=== PATIENT | female | born 1950 | race Caucasian/White ===

== ENCOUNTER 2017-02-03 01:29 | Observation (INO) ==
[2017-02-03] MEDS ORDERED: *HR* Metoprolol 5 MG/5 ML VIAL IVP ONE ×3 (01:38→02:03)
[2017-02-03 01:52] LABS: Bilirubin,Urine Negative (Negative); Blood,Urine Trace (Negative); Clarity,Urine Clear (Clear); Color,Urine Yellow (Yellow); Glucose,Urine (UA) Normal (Normal); Ketones,Urine Negative (Negative); Leukocyte Esterase,Urine Negative (Negative); Nitrite,Urine Negative (Negative); PH,Urine 6.5 pH Units (5.0-8.0); Protein,Urine 30 mg/dL (Neg-Trace); Specific Gravity,Urine 1.012 (1.010-1.025); Urobilinogen,Urine Normal (Normal)
[2017-02-03 01:54] LABS: Bacteria,Urine None Seen per hpf (None-Few); Basophils # 0.1 K/mcL (0.0-0.2); Basophils % 1.2 %; Eosinophils # 0.3 K/mcL (0.0-0.6); Eosinophils % 3.3 %; Hematocrit 45.7 % (35.3-44.9); Hyaline Casts,Urine None Seen per lpf (None-Few); Immature Granulocytes % 0.5 % (0-4); Lymphocytes # 3.8 K/mcL (0.6-4.6); Mean Corpuscular Hemoglobin 31.1 pg (28.0-33.3); Mean Corpuscular Volume 88.9 fL (83.0-100.0); Mean Platelet Volume 8.9 fL (9.4-12.4); Monocytes % 10.2 %; Neutrophils # 4.7 K/mcL (1.6-8.9); Platelet Count 343 K/mcL (140-400); RBC,Urine 0-3 per hpf (0-3); Red Blood Count 5.14 M/mcL (3.82-4.97); Red Cell Distribution Width 12.1 % (11.5-14.5); Segmented Neutrophils % 46.8 %; Squamous Epithelial Cell,Urine Moderate per lpf (None-Few)
[2017-02-03 01:58] LABS: Amphetamine Screen,Urine Negative ng/mL (Cutoff=1000); Barbiturate Screen,Urine Negative ng/mL (Cutoff=200); Benzodiazepines Screen,Urine Negative ng/mL (Cutoff=200); Cannabinoid Screen,Urine Negative ng/mL (Cutoff = 50); Cocaine Screen,Urine Negative ng/mL (Cutoff= 300); Opiate Screen,Urine Negative ng/mL (Cutoff=300); Phencyclidine Screen,Urine Negative ng/mL (Cutoff=25)
[2017-02-03 02:00] LABS: INR 2.6; Prothrombin Time 28.3 Seconds (9.4-12.1)
[2017-02-03 02:03] LABS: Activated Partial Thrombo Time 39.5 Seconds (26.0-36.0)
--- NOTE | 2017-02-03 02:03 | Emergency Department Note ---
Disposition Clinical Impression: ST segment changes on electrocardiogram, Tachycardia, Lower GI bleeding Hypertension Qualifiers: Hypertension type: unspecified Qualified Code(s): I10 - Essential (primary) hypertension Disposition: Admitted As Inpatient Condition: Fair General Adult HPI - General Chief complaint: ED Chest Pain Stated complaint: high bp and high pulse Time Seen by Provider: 02/03/17 01:35 Source: patient Mode of arrival: private vehicle Limitations: no limitations Nursing Notes Reviewed: Yes Vital Signs Reviewed: Yes - History of Present Illness Pt Subjective Complaint: heart is racing and blood pressure is up Onset (ago): hour(s) (2) Location: other (no pain) Radiation: non-radiation Pain Scale: 0 Quality: other (no pain) Consistency: constant Improves with: nothing Worsens with: nothing Associated symptoms: Reports: other (Vision was a little blurry when left the house to come here). Denies: confusion, chest pain, cough, diaphoresis, fever/ chills, headaches, loss of appetite, malaise, nausea/vomiting, rash, seizure, shortness of breath, syncope, weakness Treatments Prior to Arrival: other (Took a Clonidine) - Related Data Home Medications Medication Instructions Recorded Confirmed Atenolol 11/26/15 Coumadin 11/26/15 Suzanne [place] 12,000 Units Capsule 11/26/15 Estrace 11/26/15 Flexeril 11/26/15 Melatonin 11/26/15 Trospium Chloride 11/26/15 Previous Rx's Medication Instructions Recorded Acyclovir [Zovirax] 800 mg PO 5XD #35 tablet 11/26/15 Hydrocodone/Acetaminophen [[place] 1 each PO Q4H PRN #10 tablet 11/26/15 5-325 Tablet] predniSONE [Prednisone] 40 mg PO DAILY #10 tablet 11/26/15 Allergies Allergy/AdvReac Type Severity Reaction Status Date / Time No Known Allergies Allergy Verified 02/03/17 01:35 All systems ED: reviewed and negative except as stated. Review of Systems: As Per HPI Constitutional: Denies: fever, chills, weakness, weight change, night sweats Eyes: Reports: as per HPI, vision change. Denies: eye pain, eye discharge ENT ED: Denies: ear pain, throat pain, congestion, dysphagia Cardiovascular: Reports: palpitations. Denies: chest pain, dyspnea on exertion , orthopnea, edema, syncope, paroxysmal nocturnal dyspnea Respiratory: Denies: cough, dyspnea, wheezes Gastrointestinal: Reports: hematochezia (several episodes, > 1 daily for the past 7 days). Denies: abdominal pain, nausea, vomiting, hematemesis Genitourinary: Denies: urgency, dysuria, frequency, hematuria Musculoskeletal: Denies: back pain, neck pain, joint swelling, arthralgia, myalgia Integumentary: Denies: rash, abrasion, lesions Neurological: Denies: headache, weakness, numbness, paresthesias, confusion, abnormal gait, vertigo Hematological/Lymphatic: Reports: easy bleeding (Coumadin), easy bruising. Denies: lymphadenopathy Past Medical History - Past Medical History Attestation: Yes The following information was validated with the patient. 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 Absent: scleral icterus, conjunctival injection, periorbital swelling - ENT ENT exam: mucous membranes dry - Neck Neck exam: Present: normal inspection, full ROM, trachea midline. Absent: tenderness, meningismus - Chest Chest inspection: Present: normal inspection - Respiratory Respiratory exam: Present: normal lung sounds bilaterally. Absent: respiratory distress, wheezes, stridor, accessory muscle use - Cardiovascular Cardiovascular exam: Present: normal rhythm, tachycardia, normal heart sounds. Absent: systolic murmur, diastolic murmur - Abdominal Exam Abdominal exam: Present: soft, Non-Tender, normal bowel sounds. Absent: distention, guarding, rebound, rigidity, organomegaly - Extremities Exam Extremities exam: Present: normal inspection, normal capillary refill. Absent: pedal edema, calf tenderness - Back Exam Back exam: Present: normal inspection - Neurological Exam Neurological exam: Present: alert, oriented X3, CN II-XII intact, normal gait - Psychiatric Psychiatric exam: Present: normal affect, normal mood - Skin Skin exam: Present: warm, dry, intact, normal color Course Course Narrative: 66-year-old female with history of protein S deficiency, pulmonary emboli and hypertension, presents for evaluation of "Heart racing" and high BP. This began while resting. She took a Clonidine which did not help, so she drove herself here. She describes a similar episode of this many years ago after switching BP meds. She was recently switched from Atenolol to Metoprolol and feels that this may be the cause of her symptoms today. She denies pain, dizziness, syncope or dyspnea. She has had no recent surgeries, leg pain or swelling, and has not missed any doses of Coumadin. She also describes 7 days of rectal bleeding - with one or more episodes daily. Labs, EKG and CXR ordered. Lopressor ordered, but patient's rate and BP began to slowly decline before it was given. EKG shows sinus tachycardia - rate of 119 - with ST depression in V4, V5. The degree of depression is worse when compared to previous EKG. Aspirin held because of recent lower GI Bleeding. Troponin normal. CBC is essentially normal, renal function normal, K is a little low, glucose a little high INR is 2.6. PO K ordered. U/A unremarkable. CXR normal. Vitals continue to improve - most likely in part due to the Clonidine she took at home. Given her recent GI bleed, on Coumadin, and ST changes, will admit. Farhanse discussed with Dr. Lott. He has had face to face time with the patient and agrees with the assessment and plan. - Reevaluation(s) Reevaluation #1: PAtient is feeling a little better. Vitals are improved. Time: 02:40 Vital Signs Temperature 97.8 F 02/03/17 01:30 Pulse Rate 131 02/03/17 01:30 Respiratory Rate 18 02/03/17 01:30 Blood Pressure 194/118 02/03/17 01:30 O2 Sat by Pulse Oximetry 97 02/03/17 01:30 Temperature 97.8 F 02/03/17 01:30 Pulse Rate 81 02/03/17 04:40 Respiratory Rate 18 02/03/17 04:40 Blood Pressure 159/98 02/03/17 04:40 O2 Sat by Pulse Oximetry 97 02/03/17 04:40 Oxygen Delivery Oxygen Delivery Room Air Medical Decision Making - Medical Records Medical records reviewed: Yes I reviewed the patient's medical records. - Lab Data Lab results reviewed: Yes I reviewed the patient's lab results. Lab results narrative: Laboratory Last Values WBC 9.9 K/mcL (4.3-11.1) 02/03/17 01:39 RBC 5.14 M/mcL (3.82-4.97) H 02/03/17 01:39 Hgb 16.0 g/dL (11.5-15.4) H 02/03/17 01:39 Hct 45.7 % (35.3-44.9) H 02/03/17 01:39 MCV 88.9 fL (83.0-100.0) 02/03/17 01:39 MCH 31.1 pg (28.0-33.3) 02/03/17 01:39 MCHC 35.0 g/dL (31.6-35.5) 02/03/17 01:39 RDW 12.1 % (11.5-14.5) 02/03/17 01:39 Plt Count 343 K/mcL (140-400) 02/03/17 01:39 MPV 8.9 fL (9.4-12.4) L 02/03/17 01:39 Immature Gran % 0.5 % (0-4) 02/03/17 01:39 Seg Neutrophils % 46.8 % 02/03/17 01:39 Lymphocytes % 38.0 % 02/03/17 01:39 Monocytes % 10.2 % 02/03/17 01:39 Eosinophils % 3.3 % 02/03/17 01:39 Basophils % 1.2 % 02/03/17 01:39 Neutrophils # 4.7 K/mcL (1.6-8.9) 02/03/17 01:39 Lymphocytes # 3.8 K/mcL (0.6-4.6) 02/03/17 01:39 Monocytes # 1.0 K/mcL (0.0-1.3) 02/03/17 01:39 Eosinophils # 0.3 K/mcL (0.0-0.6) 02/03/17 01:39 Basophils # 0.1 K/mcL (0.0-0.2) 02/03/17 01:39 PT 28.3 Seconds (9.4-12.1) H 02/03/17 01:39 INR 2.6 02/03/17 01:39 APTT 39.5 Seconds (26.0-36.0) H 02/03/17 01:39 Sodium 141 mEq/L (136-145) 02/03/17 01:39 Potassium 3.2 mEq/L (3.5-4.5) L 02/03/17 01:39 Chloride 106 mEq/L (98-109) 02/03/17 01:39 Carbon Dioxide 21 mEq/L (19-29) 02/03/17 01:39 BUN 7 mg/dL (7-20) 02/03/17 01:39 Creatinine 0.82 mg/dL (0.57-1.11) 02/03/17 01:39 Est GFR ( Amer) > 60 (> 60) 02/03/17 01:39 Est GFR (Non-Af Amer) > 60 (> 60) 02/03/17 01:39 BUN/Creatinine Ratio 9 (6-26) 02/03/17 01:39 Glucose 125 mg/dL (70-99) H 02/03/17 01:39 Calculated Osmolality 291 (280-300) 02/03/17 01:39 Calcium 9.2 mg/dL (8.6-10.8) 02/03/17 01:39 Magnesium 1.9 mg/dL (1.6-2.6) 02/03/17 01:39 Total Bilirubin 0.7 mg/dL (0.2-1.2) 02/03/17 01:39 Direct Bilirubin 0.2 mg/dL (0.0-0.5) 02/03/17 01:39 Indirect Bilirubin 0.5 mg/dL (0.0-1.2) 02/03/17 01:39 AST 16 Units/L (5-34) 02/03/17 01:39 ALT 20 Units/L (0-55) 02/03/17 01:39 Alkaline Phosphatase 119 Units/L (38-126) 02/03/17 01:39 Troponin I 0.01 ng/mL (0-0.03) 02/03/17 01:39 Serum Total Protein 7.5 g/dL (6.0-8.3) 02/03/17 01:39 Albumin 4.0 g/dL (3.5-5.0) 02/03/17 01:39 Globulin 3.5 g/dL (2.4-3.5) 02/03/17 01:39 Albumin/Globulin Ratio 1.1 (1.1-2.2) 02/03/17 01:39 Urine Color Yellow (Yellow) 02/03/17 01:39 Urine Clarity Clear (Clear) 02/03/17 01:39 Urine pH 6.5 pH Units (5.0-8.0) 02/03/17 01:39 Ur Specific [place] 1.012 (1.010-1.025) 02/03/17 01:39 Urine Protein 30 mg/dL (Neg-Trace) H 02/03/17 01:39 Urine Glucose (UA) Normal mg/dL (Normal) 02/03/17 01:39 Urine Ketones Negative mg/dL (Negative) 02/03/17 01:39 Urine Blood Trace (Negative) H 02/03/17 01:39 Urine Nitrite Negative (Negative) 02/03/17 01:39 Urine Bilirubin Negative (Negative) 02/03/17 01:39 Urine Urobilinogen Normal mg/dL (Normal) 02/03/17 01:39 Ur Leukocyte Esterase Negative (Negative) 02/03/17 01:39 Urine Microscopic RBC 0-3 per hpf (0-3) 02/03/17 01:39 Urine Microscopic WBC 3-5 per hpf (0-3) H 02/03/17 01:39 Ur Squamous Epith Cells Moderate per lpf (None-Few) H 02/03/17 01:39 Urine Bacteria None Seen per hpf (None-Few) 02/03/17 01:39 Hyaline Casts None Seen per lpf (None-Few) 02/03/17 01:39 Ur Culture Indicated? NO (NO) 02/03/17 01:39 Urine Opiates Screen Negative ng/mL (Nqhmnr=816) 02/03/17 01:39 Ur Barbiturates Screen Negative ng/mL (Kkljms=690) 02/03/17 01:39 Ur Phencyclidine Scrn Negative ng/mL (Cutoff=25) 02/03/17 01:39 Ur Amphetamines Screen Negative ng/mL (Uotaig=4360) 02/03/17 01:39 U Benzodiazepines Scrn Negative ng/mL (Wyvlpd=662) 02/03/17 01:39 Urine Cocaine Screen Negative ng/mL (Cutoff= 300) 02/03/17 01:39 U Marijuana (THC) Screen Negative ng/mL (Cutoff = 50) 02/03/17 01:39 Result diagrams: 02/03/17 01:39 02/03/17 01:39 Lab Results 02/03/17 02/03/17 02/03/17 Range/Units 01:39 01:39 01:39 WBC (4.3-11.1) K/mcL RBC (3.82-4.97) M/mcL Hgb (11.5-15.4) g/dL Hct (35.3-44.9) % MCV (83.0-100.0) fL MCH (28.0-33.3) pg MCHC (31.6-35.5) g/dL RDW (11.5-14.5) % Plt Count (140-400) K/mcL MPV (9.4-12.4) fL Immature Gran % (0-4) % Seg Neutrophils % % Lymphocytes % % Monocytes % % Eosinophils % % Basophils % % Neutrophils # (1.6-8.9) K/mcL Lymphocytes # (0.6-4.6) K/mcL Monocytes # (0.0-1.3) K/mcL Eosinophils # (0.0-0.6) K/mcL Basophils # (0.0-0.2) K/mcL PT 28.3 H (9.4-12.1) Seconds INR 2.6 APTT 39.5 H (26.0-36.0) Seconds Sodium (136-145) mEq/L Potassium (3.5-4.5) mEq/L Chloride (98-109) mEq/L Carbon Dioxide (19-29) mEq/L BUN (7-20) mg/dL Creatinine (0.57-1.11) mg/dL Est GFR ( Amer) (> 60) Est GFR (Non-Af Amer) (> 60) BUN/Creatinine Ratio (6-26) Glucose (70-99) mg/dL Calculated Osmolality (280-300) Calcium (8.6-10.8) mg/dL Magnesium (1.6-2.6) mg/dL Total Bilirubin (0.2-1.2) mg/dL Direct Bilirubin (0.0-0.5) mg/dL Indirect Bilirubin (0.0-1.2) mg/dL AST (5-34) Units/L ALT (0-55) Units/L Alkaline Phosphatase (38-126) Units/L Troponin I (0-0.03) ng/mL Serum Total Protein (6.0-8.3) g/dL Albumin (3.5-5.0) g/dL Globulin (2.4-3.5) g/dL Albumin/Globulin Ratio (1.1-2.2) TSH (0.350-4.840) mcIU/mL Free T4 (0.70-1.48) ng/dl Urine Color Yellow (Yellow) Urine Clarity Clear (Clear) Urine pH 6.5 (5.0-8.0) pH Units Ur Specific [place] 1.012 (1.010-1.025) Urine Protein 30 H (Neg-Trace) mg/dL Urine Glucose (UA) Normal (Normal) mg/dL Urine Ketones Negative (Negative) mg/dL Urine Blood Trace H (Negative) Urine Nitrite Negative (Negative) Urine Bilirubin Negative (Negative) Urine Urobilinogen Normal (Normal) mg/dL Ur Leukocyte Esterase Negative (Negative) Urine Microscopic RBC 0-3 (0-3) per hpf Urine Microscopic WBC 3-5 H (0-3) per hpf Ur Squamous Epith Cells Moderate H (None-Few) per lpf Urine Bacteria None Seen (None-Few) per hpf Hyaline Casts None Seen (None-Few) per lpf Ur Culture Indicated? NO (NO) Urine Opiates Screen Negative (Owpgox=988) ng/mL Ur Barbiturates Screen Negative (Xzjzml=036) ng/mL Ur Phencyclidine Scrn Negative (Cutoff=25) ng/mL Ur Amphetamines Screen Negative (Chiofl=7953) ng/mL U Benzodiazepines Scrn Negative (Kuciyg=964) ng/mL Urine Cocaine Screen Negative (Cutoff= 300) ng/mL U Marijuana (THC) Screen Negative (Cutoff = 50) ng/mL 02/03/17 02/03/17 02/03/17 Range/Units 01:39 01:39 01:39 WBC 9.9 (4.3-11.1) K/mcL RBC 5.14 H (3.82-4.97) M/mcL Hgb 16.0 H (11.5-15.4) g/dL Hct 45.7 H (35.3-44.9) % MCV 88.9 (83.0-100.0) fL MCH 31.1 (28.0-33.3) pg MCHC 35.0 (31.6-35.5) g/dL RDW 12.1 (11.5-14.5) % Plt Count 343 (140-400) K/mcL MPV 8.9 L (9.4-12.4) fL Immature Gran % 0.5 (0-4) % Seg Neutrophils % 46.8 % Lymphocytes % 38.0 % Monocytes % 10.2 % Eosinophils % 3.3 % Basophils % 1.2 % Neutrophils # 4.7 (1.6-8.9) K/mcL Lymphocytes # 3.8 (0.6-4.6) K/mcL Monocytes # 1.0 (0.0-1.3) K/mcL Eosinophils # 0.3 (0.0-0.6) K/mcL Basophils # 0.1 (0.0-0.2) K/mcL PT (9.4-12.1) Seconds INR APTT (26.0-36.0) Seconds Sodium 141 (136-145) mEq/L Potassium 3.2 L (3.5-4.5) mEq/L Chloride 106 (98-109) mEq/L Carbon Dioxide 21 (19-29) mEq/L BUN 7 (7-20) mg/dL Creatinine 0.82 (0.57-1.11) mg/dL Est GFR ( Amer) > 60 (> 60) Est GFR (Non-Af Amer) > 60 (> 60) BUN/Creatinine Ratio 9 (6-26) Glucose 125 H (70-99) mg/dL Calculated Osmolality 291 (280-300) Calcium 9.2 (8.6-10.8) mg/dL Magnesium 1.9 (1.6-2.6) mg/dL Total Bilirubin 0.7 (0.2-1.2) mg/dL Direct Bilirubin 0.2 (0.0-0.5) mg/dL Indirect Bilirubin 0.5 (0.0-1.2) mg/dL AST 16 (5-34) Units/L ALT 20 (0-55) Units/L Alkaline Phosphatase 119 (38-126) Units/L Troponin I 0.01 (0-0.03) ng/mL Serum Total Protein 7.5 (6.0-8.3) g/dL Albumin 4.0 (3.5-5.0) g/dL Globulin 3.5 (2.4-3.5) g/dL Albumin/Globulin Ratio 1.1 (1.1-2.2) TSH 4.047 (0.350-4.840) mcIU/mL Free T4 1.06 (0.70-1.48) ng/dl Urine Color (Yellow) Urine Clarity (Clear) Urine pH (5.0-8.0) pH Units Ur Specific [place] (1.010-1.025) Urine Protein (Neg-Trace) mg/dL Urine Glucose (UA) (Normal) mg/dL Urine Ketones (Negative) mg/dL Urine Blood (Negative) Urine Nitrite (Negative) Urine Bilirubin (Negative) Urine Urobilinogen (Normal) mg/dL Ur Leukocyte Esterase (Negative) Urine Microscopic RBC (0-3) per hpf Urine Microscopic WBC (0-3) per hpf Ur Squamous Epith Cells (None-Few) per lpf Urine Bacteria (None-Few) per hpf Hyaline Casts (None-Few) per lpf Ur Culture Indicated? (NO) Urine Opiates Screen (Ghdjex=634) ng/mL Ur Barbiturates Screen (Pzdbgm=284) ng/mL Ur Phencyclidine Scrn (Cutoff=25) ng/mL Ur Amphetamines Screen (Ykmsfs=3832) ng/mL U Benzodiazepines Scrn (Xpwije=227) ng/mL Urine Cocaine Screen (Cutoff= 300) ng/mL U Marijuana (THC) Screen (Cutoff = 50) ng/mL - Radiology Data Radiology results reviewed: Yes I reviewed the patient's radiology results. Chest X-Ray 02/03/17 01:38 IMPRESSION: No acute cardiopulmonary abnormality. D/ / Nikhil Riley MD / Nikhil Riley MD Interpreting Provider: Nikhil Riley MD - EKG Data EKG #1 EKG attestation: Yes I reviewed and interpreted this EKG. EKG shows normal: sinus rhythm Rate: tachycardia Rhythm: NSR [place]/QRS: normal P waves: LAE ST segment depression in: v4, v5 When compared to previous EKG there are: changes noted - Core Measures AMI Core Measures Followed: No (ASA held due to GI Bleed) Measure Exclusions: contraindicated (ASA - Rectal bleed) Attestation Statement - Attestation Attestation: I have personally performed a face to face evaluation on this patient. I have reviewed and agree with the care plan. History and Exam by me shows:
[2017-02-03 02:08] LABS: Alanine Aminotransferase 20 Units/L (0-55); Albumin/Globulin Ratio 1.1 (1.1-2.2); Alkaline Phosphatase 119 Units/L (38-126); Aspartate Amino Transferase 16 Units/L (5-34); BUN/Creatinine Ratio 9 (6-26); Bilirubin,Direct 0.2 mg/dL (0.0-0.5); Bilirubin,Indirect 0.5 mg/dL (0.0-1.2); Bilirubin,Total 0.7 mg/dL (0.2-1.2); Blood Urea Nitrogen 7 mg/dL (7-20); Calcium 9.2 mg/dL (8.6-10.8); Carbon Dioxide 21 mEq/L (19-29); Chloride 106 mEq/L (98-109); Globulin 3.5 g/dL (2.4-3.5); Glucose 125 mg/dL (70-99); Osmolality,Calculated 291 (280-300); Potassium 3.2 mEq/L (3.5-4.5); Sodium 141 mEq/L (136-145); Total Protein 7.5 g/dL (6.0-8.3); eGFR For African Americans > 60 (> 60); eGFR For Non-African Americans > 60 (> 60)
[2017-02-03 02:50] LABS: Magnesium 1.9 mg/dL (1.6-2.6)
[2017-02-03 03:17] LABS: Thyroid Stimulating Hormone 4.047 mcIU/mL (0.350-4.840)
[2017-02-03] MEDS ORDERED: Ondansetron 4 MG/2 ML VIAL IVP PRN (04:33)
[2017-02-03] MEDS ORDERED: Acetaminophen 325 MG TABLET PO PRN (04:33)
[2017-02-03] MEDS ORDERED: Naloxone 0.4 MG/ML INJ IVP PRN (04:33)
--- NOTE | 2017-02-03 04:42 | Internal Med History&Physical ---
Date of Encounter: 02/03/17 Time of Encounter: 04:40 Assessment and Plan (1) Tachycardia Current visit: Yes Status: Acute Patient has history of PE and coagulopathy with protein C and S deficiency. She is on Coumadin with INR 2.6. She developed tachycardia and shortness of breath and palpitation and seems quite nervous about the possibility of blood clot. A CT angiogram will be ordered to see if she failed anticoagulation therapy. Nasal oxygen was started. Check TSH (2) ST segment changes on electrocardiogram Current visit: Yes Status: Acute ER physician documented that EKG showed ST depression. Cardiac enzymes ordered. Stress test scheduled in the morning. Continue current medication (3) Lower GI bleeding Current visit: Yes Status: Acute Patient is complaining of rectal bleed. 7 days continuously. Her hemoglobin is 16 on this admission. Started on IV fluid check H&H every 6. Hemoccult stool test ordered. (4) Coagulopathy Current visit: Yes Status: Acute Protein C and S deficiency per ER. Continue Coumadin as there is no obvious active bleed currently and patient is high risk for clot formation. Pepcid for prophylaxis at (5) Hypertension Current visit: Yes Status: Acute Continue home medication and check blood pressure daily Qualifiers: Hypertension type: unspecified Qualified Code(s): I10 - Essential (primary ) hypertension Internal Medicine - H&P: HPI Chief complaint: Tachycardia palpitation dyspnea Admitted From: Home Plans for Post Hospital Care: Home History of present illness: Ms. 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 Recently patient medication have been switched from atenolol to metoprolol. Patient believes this has contributed to her symptoms of palpitation shortness of breath tachycardia and elevated blood pressure. This has happened to her before. She denies any baljit chest pain. In the ER her heart rate and blood pressure both were noted elevated. She is also complaining of pain left rectal bleed for last 7 days continuously. No abdominal pain nausea vomiting diarrhea dysuria urgency frequency or hematuria hematemesis melena or any other symptoms Past Med Surg Social Fam HX - Past Medical History Medical history: GI bleed, hypertension, pulmonary embolus Psychiatric history: no psych history - Past Surgical History Surgical History: cholecystectomy, hysterectomy, COMFORT/BSO - Social History Smoking Status: Current every day smoker Smokeless Tobacco Status: No Alcohol use: none Drug use: none Internal Medicine - H&P: Meds Acyclovir [Zovirax] 800 mg PO 5XD #35 tablet 11/26/15 [Rx] Atenolol 11/26/15 [History] Coumadin 11/26/15 [History] Suzanne [place] 12,000 Units Capsule 11/26/15 [History] Estrace 11/26/15 [History] Flexeril 11/26/15 [History] Hydrocodone/Acetaminophen [[place] 5-325 Tablet] 1 each PO Q4H PRN #10 tablet [Rx] Melatonin 11/26/15 [History] Trospium Chloride 11/26/15 [History] predniSONE [Prednisone] 40 mg PO DAILY #10 tablet 11/26/15 [Rx] 3 Allergy/AdvReac Type Severity Reaction Status Date / Time No Known Allergies Allergy Verified 02/03/17 01:35 All Systems PM: A 10-system review of systems was performed and is negative for pertinent findings except as documented above in the HPI. - Constitutional Constitutional: no chills, no fever(s), no night sweats - EENT Eyes: no change in vision, no discharge, no pain, no photophobia Ears: no ear discharge, no ear pain, no tinnitus Nose, mouth and throat: no dysphagia, no nasal discharge, no neck pain, no sore throat - Cardiovascular Cardiovascular ROS IM: no chest pain, no diaphoresis, no dyspnea, no lightheadedness, no palpitations, no syncope - Respiratory Respiratory: no cough, no dyspnea, no wheezing, no excessive phlegm production - Gastrointestinal Gastrointestinal: no abdominal pain, no diarrhea, no hematemesis, no hematochezia, no melena, no nausea, no vomiting - Genitourinary Genitourinary: no change in urinary stream, no dysuria, no flank pain, no hematuria - Musculoskeletal Musculoskeletal ROS IM: no numbness, no tingling - Integumentary Integumentary IM: no rash, no unusual bruising - Neurological Neurological ROS: no confusion, no convulsions, no focal weakness, no numbness, no tingling, no tremor(s) - Hematologic/Lymphatic Hematologic/Lymphatic: no easy bruising - Constitutional Vitals: Temp Pulse Resp BP Pulse Ox 97.8 F 90 18 151/92 95 02/03/17 01:30 02/03/17 03:16 02/03/17 03:16 02/03/17 03:16 02/03/17 03:16 General appearance: Present: A&O X 3, pleasant, no acute distress, answers questions appropriately - Head Head exam: Present: atraumatic, normocephalic - Eye Eye exam: Present: PERRL, conjuntiva pink, sclera anicteric Pupils: Present: PERRL - Neck Neck exam general surgery: Present: supple, trachea midline. Absent: lymphadenopathy - Respiratory Respiratory exam: Present: CTAB. Absent: accessory muscle use, rales, rhonchi, wheezes - Cardiovascular Cardiovascular exam: Present: RRR, +S1, +S2. Absent: diastolic murmur, gallop, rubs, systolic murmur - GI/Abdominal GI/Abdominal exam: Present: normal bowel sounds, soft, no peritoneal signs. Absent: distended, tenderness - Extremities Exam Extremities exam: Present: warm, radial pulses palpable and symmetrical. Absent : calf tenderness, cyanotic, pedal edema - Neurological Exam Neurological exam: Present: CN II-XII intact, oriented X3, no focal deficits. Absent: pronater drift, facial droop, speech deficit - Skin Skin exam: Present: dry, intact Internal Med - H&P Results - Labs CBC & Chem 7: 02/03/17 01:39 02/03/17 01:39
[2017-02-03] MEDS ORDERED: 0.9 % Sodium Chloride 1,000 ML IVC SCH (04:45)
[2017-02-03 06:50] LABS: Hematocrit 43.6 % (35.3-44.9); Hemoglobin 15.1 g/dL (11.5-15.4)
[2017-02-03] MEDS ORDERED: Famotidine 20 MG TABLET PO SCH (09:00)
[2017-02-03] MEDS ORDERED: Regadenoson 0.4 MG/5 ML SYRINGE IVP ONE ×2 (09:02→09:07)
[2017-02-03 11:31] LABS: Hematocrit 46.3 % (35.3-44.9); Hemoglobin 16.2 g/dL (11.5-15.4)
[2017-02-03 12:01] VITALS: BP 163/96
[2017-02-03] MEDS ORDERED: Metoprolol XL (24 HR) Succ 50 MG TAB.ER.24H PO SCH (15:15)
--- NOTE | 2017-02-03 15:37 | Discharge Summary ---
Date of Encounter: 02/03/17 Time of Encounter: 14:45 - Discharge Diagnosis (1) Tachycardia Priority: Primary Status: Acute (2) Hypertension Priority: Primary Status: Acute Qualifiers: Hypertension type: essential hypertension Qualified Code(s): I10 - Essential (primary) hypertension (3) Lower GI bleeding Priority: Primary Status: Resolved (4) Coagulopathy Priority: Secondary Status: Chronic - Discharge Medications Home Medications: Cyclobenzaprine [Flexeril] 10 mg PO DAILY PRN 02/03/17 [History] Gabapentin [Neurontin] 400 mg PO HS 02/03/17 [History] Metoprolol Succinate 100 mg PO DAILY 02/03/17 [History] Omeprazole [PriLOSEC] 20 mg PO DAILY 02/03/17 [History] Warfarin [Coumadin] 2.5 mg PO SUTUTHSA 02/03/17 [History] Warfarin [Coumadin] 5 mg PO MOWEFR 02/03/17 [History] Allergies/Adverse Reactions: 3 Allergy/AdvReac Type Severity Reaction Status Date / Time No Known Allergies Allergy Verified 02/03/17 01:35 Procedures/tests Complete & Pending: Procedures Performed prior 72 hours Category Date Time Status CTA chest [CT angio chest] [CT] Stat Cat Scan 02/03/17 04:38 Completed NM vibha perf SPECT multi [NM] Routine Exams 02/03/17 04:39 Taken EV echocardiogram Routine Y 02/03/17 04:32 Completed SP pharm nuclear stress Routine Y 02/03/17 07:20 Completed Date of admission: 02/03/17 03:11 Primary care physician: Erin Doshi CNP Discharging clinician: Sidra Moran Anticipated date of discharge: 02/03/17 - Patient Status Disposition: Home, Self-Care Condition: Fair Functional capacity at discharge: independent ambulation Overall status at discharge: patient is progressing back to baseline - Discharge Instructions Instructions: Warfarin (By mouth) Follow Up With: Erin Doshi CNP [Primary Care Provider] - 02/11/17 9:00 am - Diet and Activity Activity: resume usual activities as tolerated Diet: advance to your usual diet Hospital course: Ms. Salazar is a 66 year old female with the above medical problems who initially presented to the emergency room with complaint of palpitations, high heart rate and blood pressure on self check at home. Patient was noted to have sinus tachycardia, uncontrolled hypertension which gradually improved during her ER stay. Initial labs, chest x-ray was noted to be normal although she had nonspecific T-wave changes on EKG. 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 CT angiogram of chest was done in the emergency room which showed no evidence of pulmonary embolism or pneumonia. Echocardiogram was done which showed preserved ejection fraction, mild left ventricular diastolic dysfunction. Nuclear stress test was done due to abnormal EKG, which was negative for ischemia or infarct. Patient remains hemodynamically stable at this time. She had a prolonged stay in the emergency room due to hospital being full. Patient was noted to be properly aggressive and very irritable upon my evaluation on the floor. She contradicted most of my talk and seemed to be defensive and kept insisting she did not want to stay here if she did not need to. She claimed she never suspected she was having a heart attack or blood clot in her lungs. She was not amenable to further questioning or management. Since she is doing well at this time, she is being discharged with outpatient PCP followup. - Time Spent with Patient Total time spent providing and/or coordinating discharge services: Greater than 30 minutes (40 min) - Constitutional Vitals: Temp Pulse Resp BP Pulse Ox 97.2 F L 76 14 163/96 96 02/03/17 06:31 02/03/17 12:00 02/03/17 12:00 02/03/17 12:00 02/03/17 12:00 General appearance: Present: mild distress, A&O X 3, answers questions appropriately - Respiratory Respiratory exam: Present: CTAB. Absent: accessory muscle use, rales, rhonchi, wheezes - Cardiovascular Cardiovascular exam: Present: RRR, +S1, +S2. Absent: diastolic murmur, gallop, rubs, systolic murmur
--- NOTE | 2017-02-03 17:18 | Electrocardiograph Report ---
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
[2017-02-03] MEDS ORDERED: Gabapentin 400 MG CAPSULE PO SCH (21:00)
== END 2017-02-03 15:55 | disposition home or self-care (01) ==
LOC: 2NENU 01:29 → EMEROO 01:29 → SUATTDRO 03:11 → 2NENU 05:31 → 3BNU 12:50
PROVIDERS: ADMIT Internal Medicine; ATTEND Internal Medicine

== ENCOUNTER 2018-03-09 18:58 | Observation (INO) ==
[2018-03-09 19:38] LABS: Basophils # 0.1 K/mcL (0.0-0.2); Basophils % 0.9 %; Eosinophils # 0.3 K/mcL (0.0-0.6); Eosinophils % 3.4 %; Hematocrit 41.4 % (35.3-44.9); Hemoglobin 14.1 g/dL (11.5-15.4); Immature Granulocytes % 0.4 % (0-4); Lymphocytes # 2.3 K/mcL (0.6-4.6); Lymphocytes % 31.6 %; Mean Corpuscular HGB Conc 34.1 g/dL (31.6-35.5); Mean Corpuscular Hemoglobin 30.3 pg (28.0-33.3); Monocytes # 0.9 K/mcL (0.0-1.3); Monocytes % 11.5 %; Neutrophils # 3.8 K/mcL (1.6-8.9); Platelet Count 315 K/mcL (140-400); Red Blood Count 4.65 M/mcL (3.82-4.97); Red Cell Distribution Width 12.1 % (11.5-14.5); Segmented Neutrophils % 52.2 %
[2018-03-09 20:01] LABS: Troponin I < 0.03 ng/mL (< 0.04)
[2018-03-09 20:02] LABS: BUN/Creatinine Ratio 12 (6-26); Blood Urea Nitrogen 9 mg/dL (8-23); Calcium 8.9 mg/dL (8.6-10.3); Carbon Dioxide 26 mEq/L (23-29); Chloride 105 mEq/L (98-107); Glucose 137 mg/dL (70-105); Osmolality,Calculated 293 (280-300); Potassium 3.6 mEq/L (3.5-5.1); Sodium 141 mEq/L (136-145); eGFR For Non-African Americans > 60 (> 60)
[2018-03-09] MEDS ORDERED: Aspirin 325 MG TABLET PO ONE (20:51)
--- NOTE | 2018-03-09 20:51 | Emergency Department Note ---
Disposition Clinical Impression: Chest pain Qualifiers: Chest pain type: unspecified Qualified Code(s): R07.9 - Chest pain, unspecified Disposition: Admitted As Inpatient Condition: Good Forms: ED Satisfaction Letter Time of Disposition: 22:30 General Adult HPI - General Chief complaint: ED Chest Pain Stated complaint: Chest pain; dizziness Time Seen by Provider: 03/09/18 20:51 Source: patient Limitations: no limitations Nursing Notes Reviewed: Yes Vital Signs Reviewed: Yes - History of Present Illness HPI Narrative: Female patient presenting to the emergency room complaining of a chest heaviness. She states it started around noon today while she was pulling. States it started on the left side of her chest and then settled as a heaviness in the center. She did try to lay down to take a nap which eased the pain up some but did not completely relieve it. She has no history of a cardiac catheterization or stent placement however she was told previously that she may have had a heart attack sometime in her past. She does currently take Coumadin for history of protein S deficiency and has a Kaylin filter placed. 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 She complains of this heaviness sensation and states that when she was at home she checked her blood pressure and this was noted to be elevated. She does take propranolol for her hypertension however she only takes this at night and she has not taken today. Patient also reports nausea associated with this chest pain. She has not tried anything to make the pain go away other than resting. Pain Scale: 8 - Related Data Home Medications Medication Instructions Recorded Confirmed Cyclobenzaprine [Flexeril] 10 mg PO DAILY PRN 02/03/17 02/03/17 Gabapentin [Neurontin] 400 mg PO HS 02/03/17 02/03/17 Metoprolol Succinate 100 mg PO DAILY 02/03/17 02/03/17 Omeprazole [PriLOSEC] 20 mg PO DAILY 02/03/17 02/03/17 Warfarin [Coumadin] 2.5 mg PO SUTUTHSA 02/03/17 02/03/17 Warfarin [Coumadin] 5 mg PO MOWEFR 02/03/17 02/03/17 Allergies Allergy/AdvReac Type Severity Reaction Status Date / Time No Known Allergies Allergy Verified 02/03/17 01:35 All systems ED: reviewed and negative except as stated. Review of Systems: As Per HPI Constitutional: Denies: fever, chills Cardiovascular: Reports: chest pain. Denies: palpitations, syncope Respiratory: Reports: dyspnea (Occasional) Gastrointestinal: Reports: nausea. Denies: abdominal pain, vomiting, diarrhea Musculoskeletal: Denies: back pain, neck pain Neurological: Reports: headache. Denies: weakness Past Medical History - Past Medical History Attestation: Yes The following information was validated with the patient. 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 - Social History Smoking Status: Former smoker Smokeless Tobacco Status: No Alcohol use: Reports: none Drug use: Reports: none Physical Exam - General Limitations: no limitations General appearance: alert, in no apparent distress - Head Head exam: atraumatic, normocephalic, normal inspection - Eye Eye exam: Present: normal appearance, PERRL, EOMI - ENT ENT exam: normal exam, normal oropharynx, mucous membranes moist - Neck Neck exam: Present: normal inspection, full ROM, trachea midline - Chest Chest inspection: Present: normal inspection, symmetric chest wall rise - Respiratory Respiratory exam: Present: normal lung sounds bilaterally. Absent: respiratory distress, accessory muscle use - Cardiovascular Cardiovascular exam: Present: regular rate, normal rhythm, normal heart sounds - Abdominal Exam Abdominal exam: Present: soft, Non-Tender. Absent: tenderness, distention, guarding, rebound, rigidity, organomegaly - Extremities Exam Extremities exam: Present: normal inspection, full ROM. Absent: tenderness, normal capillary refill, pedal edema - Back Exam Back exam: Present: normal inspection, full ROM. Absent: tenderness - Neurological Exam Neurological exam: Present: alert, oriented X3 - Psychiatric Psychiatric exam: Present: normal affect, normal mood - Skin Skin exam: Present: warm, dry, intact, normal color Course Course Narrative: Female patient presenting to the emergency department complaining of chest pain after she was bowling. States is a heaviness sensation that is still present. Lab workup showed a normal troponin. Patient does have some T-wave flattening that is new on her EKG. I did discuss aspirin use with the patient and she adamantly yelled at me and stated she would not be taking this that she is on Coumadin. She has a history of PE in his abdomen she does not have a pulmonary embolism. She states that she was told that there is a possibility she can have one again and she stated that those doctors were stupid. She is dictating most of her care while here. Despite me at bedside attempting to discuss the need for further evaluation and aspirin usage she repeatedly raises her voice and is adamant that this will happen. However she is agreeable to admission to the hospital for further evaluation of her ACS and repeat troponins. She is also agreeable to nitroglycerin for her chest pain. We will admit patient to the hospital at this time for ACS. Vital Signs Temperature 98.0 F 03/09/18 19:10 Pulse Rate 73 03/09/18 19:10 Respiratory Rate 16 03/09/18 19:10 Blood Pressure 187/105 03/09/18 19:10 O2 Sat by Pulse Oximetry 98 03/09/18 19:10 Temperature 98.0 F 03/09/18 19:10 Pulse Rate 78 03/09/18 21:23 Respiratory Rate 16 03/09/18 21:23 Blood Pressure 151/85 03/09/18 21:23 O2 Sat by Pulse Oximetry 92 03/09/18 21:23 Oxygen Delivery Oxygen Delivery Room Air Medical Decision Making - Medical Records Medical records reviewed: Yes I reviewed the patient's medical records. - Lab Data Lab results reviewed: Yes I reviewed the patient's lab results. Result diagrams: 03/09/18 19:24 03/09/18 19:24 Lab Results 03/09/18 03/09/18 Range/Units 19:24 19:24 WBC 7.4 (4.3-11.1) K/mcL RBC 4.65 (3.82-4.97) M/mcL Hgb 14.1 (11.5-15.4) g/dL Hct 41.4 (35.3-44.9) % MCV 89.0 (83.0-100.0) fL MCH 30.3 (28.0-33.3) pg MCHC 34.1 (31.6-35.5) g/dL RDW 12.1 (11.5-14.5) % Plt Count 315 (140-400) K/mcL MPV 9.0 L (9.4-12.4) fL Immature Gran % 0.4 (0-4) % Seg Neutrophils % 52.2 % Lymphocytes % 31.6 % Monocytes % 11.5 % Eosinophils % 3.4 % Basophils % 0.9 % Neutrophils # 3.8 (1.6-8.9) K/mcL Lymphocytes # 2.3 (0.6-4.6) K/mcL Monocytes # 0.9 (0.0-1.3) K/mcL Eosinophils # 0.3 (0.0-0.6) K/mcL Basophils # 0.1 (0.0-0.2) K/mcL Sodium 141 (136-145) mEq/L Potassium 3.6 (3.5-5.1) mEq/L Chloride 105 (98-107) mEq/L Carbon Dioxide 26 (23-29) mEq/L BUN 9 (8-23) mg/dL Creatinine 0.74 (0.60-1.20) mg/dL Est GFR ( Amer) > 60 (> 60) Est GFR (Non-Af Amer) > 60 (> 60) BUN/Creatinine Ratio 12 (6-26) Glucose 137 H (70-105) mg/dL Calculated Osmolality 293 (280-300) Calcium 8.9 (8.6-10.3) mg/dL Troponin I < 0.03 (< 0.04) ng/mL - Radiology Data Radiology results reviewed: Yes I reviewed the patient's radiology results. Chest X-Ray 03/09/18 19:15 IMPRESSION: No acute findings. Small amount of left basilar atelectasis. D/ / Jose Raul Sanchez / Jose Raul Sanchez Interpreting Provider: Jose Raul Sanchez - EKG Data EKG #1 EKG attestation: Yes I reviewed and interpreted this EKG. EKG results narrative: Normal sinus rhythm at a rate of 77. ND interval is 184. QRS duration is 86. QT is 375. QTC is 407. No signs of acute ischemia. There is T-wave flattening in leads 23 aVF as well as V3 from previous EKG that was in the chart from 2013.
[2018-03-09] MEDS: Nitroglycerin 0.4 MG TAB.SUBL SL PRN ×2 (21:18→21:23)
[2018-03-09] MEDS ORDERED: Ondansetron 4 MG/2 ML VIAL IVP ONE (21:31)
[2018-03-09 21:45] LABS: INR 2.4
--- NOTE | 2018-03-09 22:10 | Emergency Department Note ---
Disposition Clinical Impression: Chest pain Qualifiers: Chest pain type: unspecified Qualified Code(s): R07.9 - Chest pain, unspecified Disposition: Admitted As Inpatient Condition: Good General Adult HPI - General Chief complaint: ED Chest Pain Stated complaint: Chest pain; dizziness Time Seen by Provider: 03/09/18 20:51 Source: patient Limitations: no limitations - History of Present Illness Pain Scale: 6 - Related Data Home Medications Medication Instructions Recorded Confirmed Cyclobenzaprine [Flexeril] 10 mg PO DAILY PRN 02/03/17 02/03/17 Gabapentin [Neurontin] 400 mg PO HS 02/03/17 02/03/17 Metoprolol Succinate 100 mg PO DAILY 02/03/17 02/03/17 Omeprazole [PriLOSEC] 20 mg PO DAILY 02/03/17 02/03/17 Warfarin [Coumadin] 2.5 mg PO SUTUTHSA 02/03/17 02/03/17 Warfarin [Coumadin] 5 mg PO MOWEFR 02/03/17 02/03/17 Allergies Allergy/AdvReac Type Severity Reaction Status Date / Time No Known Allergies Allergy Verified 02/03/17 01:35 Past Medical History - Past Medical History Medical history: Reports: GI bleed, hypertension, pulmonary embolus Surgical history: Reports: cholecystectomy, hysterectomy, COMFORT/BSO Psychiatric history: Reports: no psych 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 - Social History Smoking Status: Former smoker Smokeless Tobacco Status: No Alcohol use: Reports: none Drug use: Reports: none Physical Exam - General Limitations: no limitations General appearance: alert, in no apparent distress Course Vital Signs Temperature 98.0 F 03/09/18 19:10 Pulse Rate 73 03/09/18 19:10 Respiratory Rate 16 03/09/18 19:10 Blood Pressure 187/105 03/09/18 19:10 O2 Sat by Pulse Oximetry 98 03/09/18 19:10 Temperature 98.0 F 03/09/18 19:10 Pulse Rate 78 03/09/18 21:23 Respiratory Rate 16 03/09/18 21:23 Blood Pressure 151/85 03/09/18 21:23 O2 Sat by Pulse Oximetry 92 03/09/18 21:23 Oxygen Delivery Oxygen Delivery Room Air Medical Decision Making - Lab Data Result diagrams: 03/09/18 19:24 03/09/18 19:24 Lab Results 03/09/18 03/09/18 Range/Units 19:24 19:24 WBC 7.4 (4.3-11.1) K/mcL RBC 4.65 (3.82-4.97) M/mcL Hgb 14.1 (11.5-15.4) g/dL Hct 41.4 (35.3-44.9) % MCV 89.0 (83.0-100.0) fL MCH 30.3 (28.0-33.3) pg MCHC 34.1 (31.6-35.5) g/dL RDW 12.1 (11.5-14.5) % Plt Count 315 (140-400) K/mcL MPV 9.0 L (9.4-12.4) fL Immature Gran % 0.4 (0-4) % Seg Neutrophils % 52.2 % Lymphocytes % 31.6 % Monocytes % 11.5 % Eosinophils % 3.4 % Basophils % 0.9 % Neutrophils # 3.8 (1.6-8.9) K/mcL Lymphocytes # 2.3 (0.6-4.6) K/mcL Monocytes # 0.9 (0.0-1.3) K/mcL Eosinophils # 0.3 (0.0-0.6) K/mcL Basophils # 0.1 (0.0-0.2) K/mcL Sodium 141 (136-145) mEq/L Potassium 3.6 (3.5-5.1) mEq/L Chloride 105 (98-107) mEq/L Carbon Dioxide 26 (23-29) mEq/L BUN 9 (8-23) mg/dL Creatinine 0.74 (0.60-1.20) mg/dL Est GFR ( Amer) > 60 (> 60) Est GFR (Non-Af Amer) > 60 (> 60) BUN/Creatinine Ratio 12 (6-26) Glucose 137 H (70-105) mg/dL Calculated Osmolality 293 (280-300) Calcium 8.9 (8.6-10.3) mg/dL Troponin I < 0.03 (< 0.04) ng/mL Attestation Statement - Attestation Attestation: I examined this patient and my medical decision-making was reviewed with the Resident Physician. I agree with the documented findings, disposition and treatment plan as described except to the extent set forth below. 67 year old female presents to the ED with complaints of chest pain that is midsternal and that has risk factors for ACS. trop negative, no ischemic changes except for some T wave flattening. We will admit to medicine with nitro trial
[2018-03-10] MEDS: Nitroglycerin 0.4 MG TAB.SUBL SL PRN ×2 (02:21→02:33)
[2018-03-10] MEDS ORDERED: Acetaminophen 325 MG TABLET PO PRN (05:26)
[2018-03-10] MEDS ORDERED: *HR* Morphine 2 MG/ML SYRINGE IVP PRN (05:26)
[2018-03-10] MEDS ORDERED: Naloxone 0.4 MG/ML INJ IVP PRN (05:26)
[2018-03-10] MEDS ORDERED: cloNIDine HCl 0.1 MG TABLET PO PRN (05:29)
--- NOTE | 2018-03-10 05:51 | Internal Med History&Physical ---
Date of Encounter: 03/10/18 Time of Encounter: 04:35 Internal Medicine - H&P: HPI Chief complaint: chest pain Admitted From: Emergency Dept Plans for Post Hospital Care: Home History of present illness: Ms. Salazar is a 67 year old female who presents to the ER with complaints of substernal chest pain and pressure associated with dyspnea and some mild diaphoresis. Symptoms started yesterday while she was bowling and exerting herself. She sat down and the pain persisted. She therefore came to ER for evaluation. Workup in the ER was negative, but she did respond to nitroglycerin and had chest pain relief with a sublingual nitroglycerin. She was therefore admitted to hospitalist service. Upon my assessment of the patient, she remains chest pain-free. She reiterated and confirmed the above history. I reviewed her EKG, and it shows/suggests some ST depression laterally concerning for possible ischemia. She did have a stress test a little over year ago which was negative. Given her symptoms and relief with sublingual nitroglycerin, I am concerned about possible coronary disease. Additionally, she is hypercoagulable and has protein S deficiency. She has a history of prior DVT and PE. She denies any recent prolonged travel and/or sedentary lifestyle. Her history does not suggest pulmonary embolus, but rather, suggests more of angina. I would at least check a d-dimer, and if that is negative, I do not feel she needs further workup for possible DVT or PE. Furthermore, she is therapeutic on her Coumadin and has been on Coumadin for several years. Her last DVT/PE was over 10 years ago. Past Med Surg Social Fam HX - Past Medical History Attestation: Yes The following information was validated with the patient. Source: patient, old records reviewed Medical history: DVT, GI bleed, hypertension, pulmonary embolus Additional medical history: protein S deficiency Psychiatric history: no psych history - Past Surgical History Surgical History: cholecystectomy, hysterectomy, COMFORT/BSO Additional surgical history: maryam filter,ovarian tumor,hernia repair - Social History Smoking Status: Former smoker Smokeless Tobacco Status: No Alcohol use: none Drug use: none Current living situation: Home Activity Level: Independent ambulation Recent Out of Country Travel Within the Last 8 Weeks: No - Family History Mother Hx Family Neurologic Disorders: Yes (stroke) Brother Hx Family Cancer: Yes (liver) Internal Medicine - H&P: Meds Cyclobenzaprine [Flexeril] 10 mg PO HS 02/03/17 [History] Gabapentin [Neurontin] 800 mg PO HS 02/03/17 [History] Warfarin [Coumadin] 2.5 mg PO SUMOWETHFR 02/03/17 [History] Warfarin [Coumadin] 5 mg PO TUSA 02/03/17 [History] Propranolol HCl [Innopran Xl] 120 mg PO DAILY 03/09/18 [History] cloNIDine HCl [CloNIDine HCl] 0.1 mg PO DAILY PRN 03/09/18 [History] hydroCHLOROthiazide [Hydrochlorothiazide] 12.5 mg PO DAILY PRN 03/09/18 [History] Allergy/AdvReac Type Severity Reaction Status Date / Time No Known Allergies Allergy Verified 02/03/17 01:35 - Constitutional Constitutional: no chills, no fever(s), no night sweats - EENT Eyes: no blurry vision, no change in vision Ears: no ear pain, no tinnitus Nose, mouth and throat: no nasal congestion, no sinus pressure, no sore throat - Cardiovascular Cardiovascular ROS IM: chest pain, dyspnea, dyspnea on exertion, no orthopnea, no syncope - Respiratory Respiratory: no cough, no hemoptysis, no chest congestion, no excessive phlegm production, no change in phlegm color - Gastrointestinal Gastrointestinal: no abdominal pain, no diarrhea, no hematemesis, no hematochezia, no loose stools, no melena, no vomiting - Genitourinary Genitourinary: no dysuria, no flank pain, no hematuria - Musculoskeletal Musculoskeletal ROS IM: no arthralgias, no back pain, no myalgias - Integumentary Integumentary IM: no rash, no jaundice - Neurological Neurological ROS: no disequilibrium, no dizziness, no focal weakness, no frequent falls, no headache(s) - Psychiatric Psychiatric: no anxiety, no depression - Endocrine Endocrine IM: no polydipsia, no polyphagia, no polyuria - Allergic/Immunologic Allergic/Immunologic: no GI upset with certain foods - Constitutional Vitals: Temp Pulse Resp BP Pulse Ox 98.3 F 106 16 134/81 96 03/10/18 02:19 03/10/18 02:19 03/10/18 02:19 03/10/18 02:32 03/10/18 02:19 General appearance: Present: cooperative, A&O X 3, pleasant, answers questions appropriately Exam: chest pain free - Head Head exam: Present: atraumatic, normal inspection - Eye Eye exam: Present: EOMI, PERRL. Absent: scleral icterus Pupils: Present: normal accommodation - ENT ENT exam: Present: mucous membranes dry, normal exam, normal oropharynx - Neck Neck exam general surgery: Present: full ROM, supple. Absent: tenderness, nuchal rigidity, thyromegaly - Respiratory Respiratory exam: Present: CTAB. Absent: chest wall tenderness, rales, respiratory distress, rhonchi, wheezes - Cardiovascular Cardiovascular exam: Present: RRR, +S1, +S2. Absent: diastolic murmur, systolic murmur - GI/Abdominal GI/Abdominal exam: Present: normal bowel sounds, soft. Absent: hepatomegaly, mass, splenomegaly, tenderness - Extremities Exam Extremities exam: Present: normal capillary refill, warm, radial pulses palpable and symmetrical. Absent: calf tenderness, joint swelling, pedal edema, tenderness - Back Exam Back exam: Absent: CVA tenderness (L), CVA tenderness (R) - Neurological Exam Neurological exam: Present: alert, CN II-XII intact, oriented X3, no focal deficits - Psychiatric Psychiatric exam: Present: normal affect, normal mood - Skin Skin exam: Present: dry, intact, warm Internal Med - H&P Results - Labs CBC & Chem 7: 03/09/18 19:24 03/09/18 19:24 Labs: Short CBC 03/09/18 Range/Units 19:24 WBC 7.4 (4.3-11.1) K/mcL Hgb 14.1 (11.5-15.4) g/dL Hct 41.4 (35.3-44.9) % Plt Count 315 (140-400) K/mcL Neutrophils # 3.8 (1.6-8.9) K/mcL BMP 03/09/18 19:24 Sodium 141 Potassium 3.6 Chloride 105 Carbon Dioxide 26 BUN 9 Creatinine 0.74 Glucose 137 H Calcium 8.9 Cardiac Enzymes 03/09/18 Range/Units 19:24 Troponin I < 0.03 (< 0.04) ng/mL - EKG Data -: EKG Interpreted by Myself - EKG Data Prior EKG available for review: no EKG comments: 03/10/18 05:58 NSR; lateral wall ischemic changes - Impressions ITS Impressions Chest X-Ray 03/09/18 19:15 IMPRESSION: No acute findings. Small amount of left basilar atelectasis. D/ / Jose Raul Sanchez / Jose Raul Sanchez Interpreting Provider: Jose Raul Sacnhez - Diagnostic Studies Chest x-ray Status: image reviewed by me (negative) - Assessment and plan (1) Chest pain Current Visit: Yes Status: Acute Assessment and plan: 1. Will trend troponins and EKG's. 2. SL NTG and Morphine ordered PRN for chest pain. 3. Despite negative stress test ~ 1 year ago, I will consult cardiology given abnormal EKG, + response to NTG, and hypercoagulable state. 4. Will order D-Dimer --> if +, will need CTA chest. Qualifiers: Chest pain type: chest pain due to myocardial ischemia Ischemic chest pain type: stable angina pectoris Qualified Code(s): I20.8 - Other forms of angina pectoris (2) Protein S deficiency Current Visit: Yes Status: Chronic Assessment and plan: 1. Will continue home Coumadin and dose per pharmacy. 2. Last DVT/PE was about 10 years ago per patient. 3. Chest pain history more suggestive of angina. (3) Hypertension Current Visit: Yes Status: Chronic Assessment and plan: 1. Continue home meds as appropriate. 2. Monitor BP and adjust meds as necessary. Qualifiers: Hypertension type: essential hypertension Qualified Code(s): I10 - Essential (primary) hypertension (4) DVT prophylaxis Current Visit: Yes Status: Acute Assessment and plan: 1. Coumadin per pharmacy dosing.
[2018-03-10] MEDS ORDERED: *HR* Heparin 5,000 UNIT/ML VIAL SQ SCH (06:00)
[2018-03-10 07:14] LABS: Basophils # 0.1 K/mcL (0.0-0.2); Basophils % 1.1 %; Eosinophils # 0.3 K/mcL (0.0-0.6); Eosinophils % 3.8 %; Hematocrit 41.3 % (35.3-44.9); Hemoglobin 13.9 g/dL (11.5-15.4); Immature Granulocytes % 0.3 % (0-4); Lymphocytes # 2.2 K/mcL (0.6-4.6); Lymphocytes % 32.9 %; Mean Corpuscular HGB Conc 33.7 g/dL (31.6-35.5); Mean Corpuscular Hemoglobin 29.8 pg (28.0-33.3); Mean Corpuscular Volume 88.6 fL (83.0-100.0); Mean Platelet Volume 9.3 fL (9.4-12.4); Monocytes # 0.7 K/mcL (0.0-1.3); Neutrophils # 3.4 K/mcL (1.6-8.9); Platelet Count 321 K/mcL (140-400); Red Blood Count 4.66 M/mcL (3.82-4.97); Red Cell Distribution Width 12.1 % (11.5-14.5); Segmented Neutrophils % 51.9 %
[2018-03-10 07:32] LABS: Alanine Aminotransferase 16 Units/L (7-52); Albumin 4.3 g/dL (3.5-5.7); Albumin/Globulin Ratio 1.8 (1.1-2.2); Alkaline Phosphatase 88 Units/L (34-104); Aspartate Amino Transferase 14 Units/L (13-39); BUN/Creatinine Ratio 15 (6-26); Bilirubin,Total 0.9 mg/dL (0.3-1.0); Blood Urea Nitrogen 10 mg/dL (8-23); Calcium 9.1 mg/dL (8.6-10.3); Carbon Dioxide 24 mEq/L (23-29); Chloride 106 mEq/L (98-107); Chol/HDL Ratio 4.9 (0-4.9); Cholesterol 262 mg/dL (< 200); Globulin 2.4 g/dL (2.4-3.5); Glucose 104 mg/dL (70-105); HDL Cholesterol 53 mg/dL (40-59); LDL Cholesterol,Calculated 177 mg/dL (0-99); Magnesium 1.8 mg/dL (1.6-2.6); Osmolality,Calculated 287 (280-300); Potassium 3.3 mEq/L (3.5-5.1); Sodium 139 mEq/L (136-145); Total Protein 6.7 g/dL (6.4-8.9); Triglycerides 160 mg/dL (< 150); eGFR For Non-African Americans > 60 (> 60)
[2018-03-10 07:41] LABS: INR 2.1; Prothrombin Time 23.8 Seconds (9.4-12.1)
[2018-03-10] MEDS ORDERED: Propranolol LA (24 HR) 60 MG CAP.SA.24H PO SCH (09:00)
[2018-03-10] MEDS ORDERED: Aspirin 81 MG TAB.CHEW PO SCH (10:30)
--- NOTE | 2018-03-10 11:13 | Cardiology Consult Note ---
<Louisa Yen - Last Filed: 03/10/18 11:58> Date of Encounter: 03/10/18 Time of Encounter: 10:58 Assessment and Plan (1) Chest pain Current Visit: Yes Status: Acute - exertional chest pain that started yesterday at noon, negative troponins x2, EKG shows ischemia unchanged from 09/2016 EKG but new-onset pain concerning for ischemia - Recommend baby ASA 81mg, but pt is refusing due to concerns for interaction with her warfarin therapy. Explained different to pt, but she continues to adamantly refuse - Recommend pharmacologic stress test, but pt resolutely committed to going home today - Pt can follow-up as outpatient if she wishes to pursue further testing or therapy - Will sign off Qualifiers: Chest pain type: chest pain due to myocardial ischemia Ischemic chest pain type: stable angina pectoris Qualified Code(s): I20.8 - Other forms of angina pectoris (2) Hyperlipidemia Current Visit: Yes Status: Acute TG 160 Total cholesterol 262, LDL 177 - Start Lipitor 40mg Daily Qualifiers: Hyperlipidemia type: mixed hyperlipidemia Qualified Code(s): E78.2 - Mixed hyperlipidemia Discussion w patient/family: The assessment and plan as outlined above was discussed with the patient and/or family members who did not want to pursue the recommendations. All questions were answered. Thank you for involving us in the care of your patient. Please call with any questions. History of Present Illness Consult date: 03/10/18 Requesting physician: Tuan Covington Consult reason: CP responsive to NG, EKG changes, hypercoag state Chief complaint: Chest pain History of present illness: Ms. 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 Pt presented to [facility] ED on 03/09/18 with chest pain that began at noon while she bowling. She described it as a stabbing-heaviness that started on the left side of her chest and then migrated to the sternal area with radiation to both shoulder bladers. It was accompanied by dizziness and nausea, but no diaphoresis, syncope, or visual changes. She stated it was constant in nature 7- 8/10 with occasional elevations to 10/10 and lasted until she was given 2 NG in the ED. It was made worse with exertion and not alleviated by anything. Before she presented to the ED, she took her BP at home and noted that it was 187/101, but she did not take any of her propranolol as she takes that at night. She no lauro that she had a return of pain at 0400 this am and was given 1 dose of NG which relieved it, but had no pain during my exam at 0900. Pt had a 45 year history of smoking 1.5 ppd but quit in of this year. Pt had a negative stress test in 01/2017, and negative troponins x 2 during this admission. Her EKG was actually improved when compared to previous 02/03/17 and unchanged when compared to study from 09/2016. Family hx is notable for Protein S deficiency in her dad's side and CHF on both sides. Her cholesterol is elevated at 262 total with LDL 177. Pt has spinal stenosis with right foot drop at present so will not be able to participate in exercise stress test. Recommend pharmacologic stress test, but pt is adamant about going home today. Also recommend baby ASA daily, but pt is again adamantly refusing this therapy as she believes it will interact with her current AC regimen. Will sign off. Pt can follow-up as an outpatient if she wishes to pursue further testing or ther apy. 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, ureter, abdo men), DVT, GI bleed, hypertension, pulmonary embolus, other (spinal stenosis) Additional medical history: protein S deficiency Psychiatric history: no psych history - Past Surgical History Surgical History: cancer surgery, cholecystectomy, hysterectomy, COMFORT/BSO Additional surgical history: maryam filter,ovarian tumor,hernia repair - Social History Smoking Status: Former smoker (45 years 1.5ppd, quit october 2017) Smokeless Tobacco Status: No Alcohol use: none Drug use: none - Family History Mother Hx Family Neurologic Disorders: Yes (stroke) Brother Hx Family Cancer: Yes (liver) Father Hx Family Medical Disorders: Yes (Protein S disorder) Medications and Allergies Cyclobenzaprine [Flexeril] 10 mg PO HS 02/03/17 [History] Gabapentin [Neurontin] 800 mg PO HS 02/03/17 [History] Warfarin [Coumadin] 2.5 mg PO SUMOWETHFR 02/03/17 [History] Warfarin [Coumadin] 5 mg PO TUSA 02/03/17 [History] Propranolol HCl [Innopran Xl] 120 mg PO DAILY 03/09/18 [History] cloNIDine HCl [CloNIDine HCl] 0.1 mg PO DAILY PRN 03/09/18 [History] hydroCHLOROthiazide [Hydrochlorothiazide] 12.5 mg PO DAILY PRN 03/09/18 [H istory] Aspirin Enteric Coated [Aspirin EC] 81 mg PO DAILY #30 tablet. 03/10/18 [Rx] Metoprolol [Lopressor] 12.5 mg PO BID #15 tablet 03/10/18 [Rx] Allergy/AdvReac Type Severity Reaction Status Date / Time No Known Allergies Allergy Verified 02/03/17 01:35 All Systems Review: The remainder of the systems were reviewed and are negative - Constitutional Constitutional: no chills, no fever(s) - EENT Eyes: no blurred vision, no loss of vision - Cardiovascular Cardiovascular: chest pain with exertion, radiating jaw, neck or arm pain, no diaphoresis, no dyspnea at rest, no dyspnea on exertion, no irregular heart rhythm, no leg edema, no lightheadedness, no syncope - Respiratory Respiratory: no dyspnea - Gastrointestinal Gastrointestinal: abdominal pain (chronic, present for "a long time") - Neurological Neurological: dizziness Physical Examination Vital Signs, Last 4 Hours Temp Pulse Resp BP Pulse Ox 03/10/18 07:37 97.9 F 72 19 135/69 98 General: Conversant, No Apparent Distress HEENT: Atraumatic, Normocephaly, Mucus Membranes Moist Neck: No JVD, Normal carotid pulses Cardiac: Reg Rate and Rhythm, Normal S1 and S2, No Murmur Lungs: Normal Breath Sounds, No Wheeze, Rales, Rhonchi Neuro: Alert and responsive, No focal deficits noted Abdomen: Soft, Other (Epigastric area tender) Skin: No rashes noted on visualized skin Musculoskeletal: No Chest Wall Tenderness Extremities: No Clubbing, No Cyanosis, No Edema, Normal Pulses Results 03/10/18 06:18 03/10/18 06:18 Lab Results 03/09/18 03/09/18 03/09/18 19:24 19:24 21:14 WBC 7.4 Hgb 14.1 Hct 41.4 Plt Count 315 INR 2.4 D-Dimer Sodium 141 Potassium 3.6 Chloride 105 Carbon Dioxide 26 BUN 9 Creatinine 0.74 Glucose 137 H Calcium 8.9 Magnesium Total Bilirubin AST ALT Alkaline Phosphatase Troponin I < 0.03 03/10/18 03/10/18 03/10/18 06:18 06:18 06:18 WBC 6.6 Hgb 13.9 Hct 41.3 Plt Count 321 INR 2.1 D-Dimer Sodium 139 Potassium 3.3 L Chloride 106 Carbon Dioxide 24 BUN 10 Creatinine 0.66 Glucose 104 Calcium 9.1 Magnesium 1.8 Total Bilirubin 0.9 AST 14 ALT 16 Alkaline Phosphatase 88 Troponin I 03/10/18 03/10/18 06:18 06:18 WBC Hgb Hct Plt Count INR D-Dimer < 215 Sodium Potassium Chloride Carbon Dioxide BUN Creatinine Glucose Calcium Magnesium Total Bilirubin AST ALT Alkaline Phosphatase Troponin I < 0.03 - Imaging and Cardiology Chest Xray: report reviewed, image reviewed - EKG Interpretation EKG results cardiology: personally reviewed, sinus rhythm (ST depression in V3- V6) Consult Discharge Plan - Plan Instructions: Metoprolol (By mouth), Aspirin (By mouth) Referrals: Erin Doshi, MEGAN [Primary Care Provider] - 03/15/18 3:00 pm Emanuel Martínez DO [Partnered Physician] - (Office will call with appointment date and time.) Prescriptions: Aspirin Enteric Coated [Aspirin EC] 81 mg PO DAILY #30 tablet. Metoprolol [Lopressor] 12.5 mg PO BID #15 tablet <Geraldine Sanches - Last Filed: 03/10/18 14:13> Date of Encounter: 03/10/18 - Attending Attestation I examined this patient and my medical decision-making was reviewed with the Resident Physician. I agree with the documented findings, disposition and treatment plan. Ms. Salazar presents with chest pain and SOB while bowling in setting of elevated blood pressure. Cardiac workup so far unremarkable. Troponins negative. ECGs reviewed (admission, ECG 09/07/13 and ECG 02/03/17) AAOx3, NAD on exam No cardiac murmur, normal lung sounds, no LE edema Vital signs - hypertensive Impression: 1. Chest pain: One isolated episode of chest pain in setting of elevated blood pressure. Troponins negative. ECG on admission demonstrated NS ST a bnormalities, improved when compared to ECG 01/20 and similar in comparison to ECG 2013. Stress test 01/20 negative. Offered patient opportunity to consider stress testing for ischemic evaluation since it's been 1 year since last assessment. Patient declines and would like to go home. She may consider doing this as outpatient. However, she is strongly opposed to the use of aspirin and therefore she would unlikely be a good candidate for invasive testing if that would become a consideration after stress testing. Will sign off. Patient can be seen as PCP for follow up or by Cardiology if patient would like. Lipitor has been started for dyslipidemia. Assessment and Plan Discussion w patient/family: The assessment and plan as outlined above was discussed with the patient and/or family members who expressed understanding and agreement. All questions were answered. Thank you for involving us in the care of your patient. Please call with any questions. History of Present Illness History of present illness: Ms. Salazar is a 67 year old female All Systems Review: The remainder of the systems were reviewed and are negative Physical Examination Vital Signs, Last 4 Hours Temp Pulse Resp BP Pulse Ox 03/10/18 11:57 97.6 F 66 18 148/85 97 Results 03/10/18 06:18 03/10/18 06:18 Lab Results 03/09/18 03/09/18 03/09/18 19:24 19:24 21:14 WBC 7.4 Hgb 14.1 Hct 41.4 Plt Count 315 INR 2.4 D-Dimer Sodium 141 Potassium 3.6 Chloride 105 Carbon Dioxide 26 BUN 9 Creatinine 0.74 Glucose 137 H Calcium 8.9 Magnesium Total Bilirubin AST ALT Alkaline Phosphatase Troponin I < 0.03 03/10/18 03/10/18 03/10/18 06:18 06:18 06:18 WBC 6.6 Hgb 13.9 Hct 41.3 Plt Count 321 INR 2.1 D-Dimer Sodium 139 Potassium 3.3 L Chloride 106 Carbon Dioxide 24 BUN 10 Creatinine 0.66 Glucose 104 Calcium 9.1 Magnesium 1.8 Total Bilirubin 0.9 AST 14 ALT 16 Alkaline Phosphatase 88 Troponin I 03/10/18 03/10/18 06:18 06:18 WBC Hgb Hct Plt Count INR D-Dimer < 215 Sodium Potassium Chloride Carbon Dioxide BUN Creatinine Glucose Calcium Magnesium Total Bilirubin AST ALT Alkaline Phosphatase Troponin I < 0.03
[2018-03-10 12:00] VITALS: BP 148/85
--- NOTE | 2018-03-10 12:56 | Electrocardiograph Report ---
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
--- NOTE | 2018-03-10 13:33 | Discharge Summary ---
- NOTES TO OUTPATIENT PROVIDER Notes to Outpatient Provider: Follow up with PCP in one week. Please follow-up with cardiology Dr. Martínez in one week. Please go for nuclear stress test as an out pt though your PCP. Pelase start taking Metoprolol 12.5mg PO BID for your BP and Heart. Pelase start taking Aspirin 81 mg PO Daily Orders not resulted at time of discharge: Pending orders 03/11/18 05:26 Prothrombin Time INR [COAG] DAILY 03/11/18 10:16 SP pharm nuclear stress Routine 03/12/18 05:26 Prothrombin Time INR [COAG] DAILY 03/13/18 05:26 Prothrombin Time INR [COAG] DAILY 03/14/18 05:26 Prothrombin Time INR [COAG] DAILY 03/15/18 05:26 Prothrombin Time INR [COAG] DAILY 03/16/18 05:26 Prothrombin Time INR [COAG] DAILY Date of Encounter: 03/10/18 Time of Encounter: 13:25 - Discharge Diagnosis (1) Chest pain Priority: Primary Status: Acute Qualifiers: Chest pain type: chest pain due to myocardial ischemia Ischemic chest pain type: stable angina pectoris Qualified Code(s): I20.8 - Other forms of angina pectoris (2) Hypertension Priority: Secondary Status: Chronic Qualifiers: Hypertension type: essential hypertension Qualified Code(s): I10 - Essential (primary) hypertension (3) Protein S deficiency Priority: Secondary Status: Chronic (4) DVT prophylaxis Priority: Secondary Status: Acute Hospital course: Ms. Salazar is a 67 year old female with known past medical history of protein S deficiency on Coumadin for anticoagulation, DVT, hypertension and PE who presented to the ER with complaints of sub sternal chest pain and pressure associated with dyspnea and some mild diaphoresis. Symptoms started yesterday while she was bowling and exerting herself. Workup in the ER was negative, but she did respond to nitroglycerin and had chest pain relief with a sublingual nitroglycerin. She did have some non specific EKG changes which were little improved compare to her old EKG from 02/2017. Patient was admitted in the hospital and placed on ekg monitor. His serial troponin's were negative. Patient was evaluated by intake clerk who recommend to go for pharmacological stress test. However patient refused to go for stress test. Also cardiology recommend to start taking antiplatelet medication aspirin 81 mg along with Coumadin. Patient did not want to take aspirin since that may make her high risk for bleeding. I explained to her about risks and benefits. Also gave her Rx for ASA 81mg. Also started her on Metoprolol 12.5mg PO BID. Recommend to f/u with Cardiology as an out pt. - Time Spent with Patient Total time spent providing and/or coordinating discharge services: - Discharge Medications Prescriptions: Aspirin Enteric Coated [Aspirin EC] 81 mg PO DAILY #30 tablet. Metoprolol [Lopressor] 12.5 mg PO BID #15 tablet Home Medications: Cyclobenzaprine [Flexeril] 10 mg PO HS 02/03/17 [History] Gabapentin [Neurontin] 800 mg PO HS 02/03/17 [History] Warfarin [Coumadin] 2.5 mg PO SUMOWETHFR 02/03/17 [History] Warfarin [Coumadin] 5 mg PO TUSA 02/03/17 [History] Propranolol HCl [Innopran Xl] 120 mg PO DAILY 03/09/18 [History] cloNIDine HCl [CloNIDine HCl] 0.1 mg PO DAILY PRN 03/09/18 [History] hydroCHLOROthiazide [Hydrochlorothiazide] 12.5 mg PO DAILY PRN 03/09/18 [History] Aspirin Enteric Coated [Aspirin EC] 81 mg PO DAILY #30 tablet. 03/10/18 [Rx] Metoprolol [Lopressor] 12.5 mg PO BID #15 tablet 03/10/18 [Rx] Allergies/Adverse Reactions: Allergy/AdvReac Type Severity Reaction Status Date / Time No Known Allergies Allergy Verified 02/03/17 01:35 Date of admission: 03/09/18 21:34 Primary care physician: Erin Doshi CNP Consults: 03/10/18 05:26 Consult to Cardiology [CONS] Routine Comment: Consulting Provider: Cardiology [facility] Reason for Consult: chest pain responsive to NTG; + EKg changes; hype rcoagulable state Call Completed: No - Constitutional Vitals: Temp Pulse Resp BP Pulse Ox 97.6 F 66 18 148/85 97 03/10/18 11:57 03/10/18 11:57 03/10/18 11:57 03/10/18 11:57 03/10/18 11:57 General appearance: Present: cooperative, A&O X 3, pleasant, answers questions appropriately Exam: Gen: Alert, awake, Oriented to time,place and person Chest: Diminished breath sounds B/L, No wheezing, No crackles, No rales Heart: S1S2+ RRR No murmurs Abd: Soft, NT, BS +, No organomegaly Ext: No edema, pulses are palpable, No calf tenderness Neuro : Benign findings Skin: No rash. - Patient Status Disposition: Home, Self-Care Condition: Good Overall status at discharge: patient is back to baseline - Discharge Instructions Follow Up With: Erin Doshi, MEGAN [Primary Care Provider] - Emanuel Martínez DO [Partnered Physician] - - Diet and Activity Activity: increase activity as tolerated Diet: low salt diet
--- NOTE | 2018-03-10 14:56 | Electrocardiograph Report ---
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
[2018-03-10] MEDS ORDERED: *HR* Warfarin 2.5 MG TABLET PO ONE (18:00)
[2018-03-10] MEDS ORDERED: Warfarin perPT PO PRN (18:00)
[2018-03-10] MEDS ORDERED: Gabapentin 400 MG CAPSULE PO SCH (21:00)
== END 2018-03-10 14:29 | disposition home or self-care (01) ==
LOC: EMEROOARM 18:58 → 3BNU 18:58 → SUATTDRO 21:34 → 3BNU 22:30
PROVIDERS: ADMIT Internal Medicine; ATTEND Family Medicine